=== PATIENT | female | born 1975 | race Hispanic/Latino ===

== ENCOUNTER 2022-04-08 22:10 | Emergency (ER) | payer BC, OTHER ==
[~2022-04-08] VITALS: Ht 149.9 cm; Wt 77.1 kg
[2022-04-08] MEDS ORDERED: HYDROCODONE/APAP 5MG-325MG TAB PO ONE (22:45)
[2022-04-08] MEDS ORDERED: CYCLOBENZAPRINE5 MG PO (23:03)
[2022-04-08] MEDS ORDERED: KETOROLAC TROME10 MG PO (23:03)
[2022-04-08] MEDS ORDERED: HYDROCODONE/APAP 5MG-325MG TAB ONE (23:10)
== END 2022-04-08 23:27 | disposition home or self-care (01) ==
LOC: FSED 22:35
DX: M79.604 Pain in right leg (principal); S86.811A Strain of other muscle(s) and tendon(s) at lower leg level, right leg, initial encounter; X50.1XXA Overexertion from prolonged static or awkward postures, initial encounter; Y92.39 Other specified sports and athletic area as the place of occurrence of the external cause
CPT/HCPCS: 99283